=== PATIENT | male | born 1980 | race American Indian/Alaskan Native ===

== ENCOUNTER 2017-04-26 19:28 | Emergency (ER) | payer MEDICAID, OTHER ==
--- NOTE | 2017-04-26 20:54 | EDM.PDOC ---
ED HPI GENERAL MEDICAL PROBLEM - General Chief Complaint: Gastrointestinal Problem Stated Complaint: [id number] FEELING SICK,LIGHTHEADED,DIAHREAH Time Seen by Provider: 04/26/17 20:49 Source of Information: Reports: Patient History Limitations: Reports: No Limitations - History of Present Illness INITIAL COMMENTS - FREE TEXT/NARRATIVE: sudden fever satrting tuesday, now sore throat cough, generalized body aches. Treatments CONSULTANT TECHNOLOGY: Reports: Other Medication(s) Generalized Pain Score (Numeric/FACES): 5 - Related Data Allergies Allergy/AdvReac Type Severity Reaction Status Date / Time No Known Allergies Allergy Verified 04/26/17 19:46 Home Meds: Home Meds . [No Known Home Meds] 04/26/17 [History] Past Medical History - Past Health History Medical/Surgical History: Denies Medical/Surgical History Social & Family History - Family History Family Medical History: Noncontributory - Tobacco Use Smoking Status *Q: Current Every Day Smoker Years of Tobacco use: 20 Packs/Tins Daily: 0.5 Second Hand Smoke Exposure: Yes - Caffeine Use Caffeine Use: Reports: Coffee, Soda - Alcohol Use Days Per Week of Alcohol Use: 7 Number of Drinks Per Day: 6 Total Drinks Per Week: 42 - Recreational Drug Use Recreational Drug Use: No ED ROS GENERAL - Review of Systems Review Of Systems: See Below Constitutional: Reports: Fever, Fatigue HEENT: Reports: Rhinitis, Throat Pain Respiratory: Reports: Cough Cardiovascular: Reports: No Symptoms GI/Abdominal: Reports: No Symptoms : Reports: No Symptoms Musculoskeletal: Reports: Other (generalized body aches, greater lower legs) Skin: Reports: No Symptoms Neurological: Reports: No Symptoms ED EXAM, GENERAL - Physical Exam Exam: See Below Exam Limited By: No Limitations General Appearance: Alert, Mild Distress Eye Exam: Bilateral Eye: EOMI Ears: Normal External Exam Ear Exam: Right Ear: TM Red (mild), Bilateral Ear: TM Dull Nose: Normal Inspection Throat/Mouth: Inflammation Head: Atraumatic Neck: Normal Inspection Respiratory/Chest: Decreased Breath Sounds Cardiovascular: Normal Peripheral Pulses GI/Abdominal: Normal Bowel Sounds Extremities: Normal Inspection, Normal Range of Motion Neurological: Alert, Oriented Psychiatric: Normal Affect Skin Exam: Warm, Dry, Intact Course - Vital Signs Last Recorded V/S: Last Vital Signs Temp 102.5 F H 04/26/17 21:16 Pulse 107 H 04/26/17 19:55 Resp 20 04/26/17 19:55 BP 140/93 H 04/26/17 19:55 Pulse Ox 95 04/26/17 19:55 - Orders/Labs/Meds Orders: Active Orders 24 hr Category Date Time Status CULTURE STREP A CONFIRMATION [RM] Stat Lab 04/26/17 20:55 Results STREP SCRN A RAPID W CULT CONF [RM] Stat Lab 04/26/17 20:55 Results Labs: Laboratory Tests 04/26/17 04/26/17 04/26/17 Range/Units 21:00 21:00 21:00 WBC 16.3 H (5.0-10.0) 10^3/uL RBC 5.27 (4.6-6.2) 10^6/uL Hgb 16.1 (14.0-18.0) g/dL Hct 46.9 (40.0-54.0) % MCV 89.0 (80-100) fL MCH 30.6 (27.0-34.0) pg MCHC 34.3 (33.0-35.0) g/dL Plt Count 227 (150-450) 10^3/uL Neut % (Auto) 81.9 H (42.2-75.2) % Lymph % (Auto) 10.4 L (20.5-50.1) % [place] % (Auto) 6.6 (2-8) % Eos % (Auto) 0.9 L (1.0-3.0) % Baso % (Auto) 0.2 (0.0-1.0) % Sodium 136 (135-145) mmol/L Potassium 3.7 (3.6-5.0) mmol/L Chloride 103 (101-111) mmol/L Carbon Dioxide 23.0 (21.0-31.0) mmol/L Anion Gap 13.7 BUN 7 (7-18) mg/dL Creatinine 0.8 (0.6-1.3) mg/dL Est Cr Clr Drug Dosing 144.14 mL/min Estimated GFR (MDRD) > 60 BUN/Creatinine Ratio 8.75 Glucose 98 (74-105) mg/dL Calcium 8.9 (8.4-10.2) mg/dl Total Bilirubin 0.9 (0.2-1.0) mg/dL AST 23 (10-42) IU/L ALT 17 (10-60) IU/L Alkaline Phosphatase 68 (42-121) IU/L Total Protein 7.7 (6.7-8.2) g/dl Albumin 4.2 (3.2-5.5) g/dl Globulin 3.5 Albumin/Globulin Ratio 1.20 Urine Color Yellow (YELLOW) Urine Appearance Clear (CLEAR) Urine pH 7.0 (5.0-9.0) Ur Specific [place] 1.015 (1.005-1.030) Urine Protein Negative (NEGATIVE) Urine Glucose (UA) Negative (NEGATIVE) Urine Ketones Negative (NEGATIVE) Urine Occult Blood Negative (NEGATIVE) Urine Nitrite Negative (NEGATIVE) Urine Bilirubin Negative (NEGATIVE) Urine Urobilinogen 1.0 (0.2-1.0) mg/dL Ur Leukocyte Esterase Negative (NEGATIVE) Urine RBC 0-5 /HPF Urine WBC Not seen (0-5/HPF) /HPF Ur Epithelial Cells Rare /HPF Urine Bacteria Rare (0-FEW/HPF) /HPF Meds: Medications Discontinued Medications Generic Name Dose Route Start Last Admin Trade Name Freq PRN Reason Stop Dose Admin Amoxicillin 500 mg 04/26/17 23:01 04/26/17 23:08 Amoxil PO 04/26/17 23:02 500 mg ONETIME ONE Administration Sodium Chloride 1,000 mls @ 999 mls/hr 04/26/17 21:04 04/26/17 21:08 Normal Saline IV 04/26/17 22:04 999 mls/hr .BOLUS ONE Administration Ibuprofen 600 mg 04/26/17 21:12 04/26/17 21:16 Motrin PO 04/26/17 21:13 600 mg ONETIME ONE Administration - Radiology Interpretation Free Text/Narrative:: CXR No acute disease Departure - Departure Time of Disposition: 22:59 Disposition: Home, Self-Care 01 Condition: Good Clinical Impression: Bronchitis URI (upper respiratory infection) Qualifiers: URI type: unspecified URI Qualified Code(s): J06.9 - Acute upper respiratory infection, unspecified - Discharge Information Instructions: Dehydration, Adult, [id number] Forms: ED Department Discharge Additional Instructions: increase fluids rest alternate tylenol and ibuprofen amoxicillin 875 one twice daily for one week tylenol or ibuprofen for fever discomfot - My Orders Last 24 Hours: My Active Orders 04/26/17 20:55 CULTURE STREP A CONFIRMATION [RM] Stat STREP SCRN A RAPID W CULT CONF [RM] Stat - Assessment/Plan Last 24 Hours: My Active Orders 04/26/17 20:55 CULTURE STREP A CONFIRMATION [RM] Stat STREP SCRN A RAPID W CULT CONF [RM] Stat
[2017-04-26] MEDS ORDERED: Sodium Chloride 0.9% 1,000 ML IV ONE (21:04)
[2017-04-26] MEDS ORDERED: Ibuprofen 600 MG Tab PO ONE (21:12)
[2017-04-26 21:27] LABS: ANION GAP 13.7; CHLORIDE,CL 103 mmol/L (101-111); SODIUM,NA 136 mmol/L (135-145)
[2017-04-26] MEDS ORDERED: Amoxicillin 500 MG Cap PO ONE (23:01)
== END 2017-04-26 23:12 | disposition home or self-care (01) ==
LOC: DL.ED 19:28
DX: J40 Bronchitis, not specified as acute or chronic (principal); J06.9 Acute upper respiratory infection, unspecified; F17.210 Nicotine dependence, cigarettes, uncomplicated
CPT/HCPCS: 36415; 71045; 80053; 81001; 85025; 87081; 87430; 96360; 99284; A9270; J7030

== ENCOUNTER 2017-10-24 15:41 | Emergency (ER) | payer MEDICAID, OTHER ==
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
[2017-10-24 17:08] LABS: ANION GAP 13.7; CHLORIDE,CL 102 mmol/L (101-111); SODIUM,NA 137 mmol/L (135-145)
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
== END 2017-10-24 18:23 | disposition home or self-care (01) ==
LOC: DL.ED 15:41
DX: S22.41XA Multiple fractures of ribs, right side, initial encounter for closed fracture (principal); V49.40XA Driver injured in collision with unspecified motor vehicles in traffic accident, initial encounter
CPT/HCPCS: 36415; 70450; 70486; 71101; 72040; 73610; 80053; 80305; 81001; 85025; 94010; 99284; G0480

== ENCOUNTER 2020-02-17 09:16 | Emergency (ER) | payer SELFPAY ==
[2020-02-17] MEDS ORDERED: fentaNYL 100 MCG/2 ML SDV IVPUSH ONE (10:01)
[2020-02-17] MEDS ORDERED: Lactated Ringers 1,000 ML IV ONE (10:01)
--- NOTE | 2020-02-17 10:10 | EDM.PDOC ---
ED HPI GENERAL MEDICAL PROBLEM - General Chief Complaint: Abdominal Pain Stated Complaint: sevre stomache pain fever light headed dizzy Time Seen by Provider: 02/17/20 09:35 Source of Information: Reports: Patient, RN, RN Notes Reviewed History Limitations: Reports: No Limitations - History of Present Illness INITIAL COMMENTS - FREE TEXT/NARRATIVE: Patient is a 39-year-old male who presents to ER with complaint of abdominal pain. Patient states he feels as though he is constipated, states last normal bowel movement was . States he has had very small watery stools for the past day or so with increasing pain. The pain began in the right upper and left upper quadrants, and has moved to the left lower quadrant. Patient is tender to the right lower quadrant as well upon palpation. Patient admits to fever and chills, nausea and vomiting, and the watery stools. Denies chest pains, states he does have some shortness of breath, due to the pain. Patient denies any past history of abdominal surgeries, denies history of hernias. Patient states the pain does radiate into the testicles. Patient states he has not had any known exposure to Covid. States he wears a mask at all times at work. States he was tested between 4 and 6 weeks ago and was negative. Denies any cough or body aches. Onset: Today, Sudden Duration: Constant, Getting Worse Location: Reports: Abdomen Quality: Reports: Sharp, Stabbing Severity: Moderate Improves with: Reports: None Worsens with: Reports: None Associated Symptoms: Reports: Fever/Chills, Loss of Appetite, Nausea/Vomiting Left Lower Abdominal Pain Score (Numeric/FACES): 7 - Related Data Allergies Allergy/AdvReac Type Severity Reaction Status Date / Time No Known Allergies Allergy Verified 02/17/20 10:07 Home Meds: Home Meds . [No Known Home Meds] 04/26/17 [History] Past Medical History - Past Health History Medical/Surgical History: Denies Medical/Surgical History - Past Surgical History Musculoskeletal Surgical History: Reports: Shoulder Surgery Social & Family History - Family History Family Medical History: No Pertinent Family History - Tobacco Use Tobacco Use Status *Q: Current Every Day Tobacco User Years of Tobacco use: 23 Packs/Tins Daily: 1 - Caffeine Use Caffeine Use: Reports: None - Recreational Drug Use Recreational Drug Use: Yes ED ROS GENERAL - Review of Systems Review Of Systems: Comprehensive ROS is negative, except as noted in HPI. ED EXAM, GI/ABD - Physical Exam Exam: See Below Exam Limited By: No Limitations General Appearance: Alert, WD/WN, Mild Distress Eyes: Bilateral: Normal Appearance, EOMI Ears: Normal External Exam, Hearing Grossly Normal Nose: Normal Inspection Throat/Mouth: Normal Inspection, Normal Voice, No Airway Compromise Head: Atraumatic, Normocephalic Neck: Normal Inspection, Supple, Non-Tender, Full Range of Motion Respiratory/Chest: No Respiratory Distress, Lungs Clear, Normal Breath Sounds, No Accessory Muscle Use, Chest Non-Tender Cardiovascular: Normal Peripheral Pulses, Regular Rate, Rhythm, No Edema, No Gallop, No JVD, No Murmur, No Rub GI/Abdominal Exam: No Organomegaly, No Distention, No Abnormal Bruit, No Mass, Pelvis Stable, Tender (generalized/diffuse), Abnormal Bowel Sounds (hypoactive), Other (Pain radiates to the testicles) (Male) Exam: Deferred Rectal (Males) Exam: Deferred Back Exam: Normal Inspection, Full Range of Motion, NT Extremities: Normal Inspection, Normal Range of Motion, Non-Tender, Normal Capillary Refill, No Pedal Edema Neurological: Alert, Oriented, CN II-XII Intact, Normal Cognition, Normal Gait, Normal Reflexes, No Motor/Sensory Deficits Psychiatric: Normal Affect, Normal Mood Skin Exam: Warm, Dry, Intact, Normal Color, No Rash Lymphatic: No Adenopathy Course - Vital Signs Last Recorded V/S: Last Vital Signs Temp 99.9 F 02/17/20 09:27 Pulse 111 H 02/17/20 09:27 Resp 18 02/17/20 09:27 BP 135/85 02/17/20 09:27 Pulse Ox 98 02/17/20 09:27 - Orders/Labs/Meds Orders: Active Orders 24 hr Category Date Time Status CORONAVIRUS COVID-19 SILVA [MOLEC] Stat Lab 02/17/20 11:19 Ordered CULTURE BLOOD [BC] Stat Lab 02/17/20 09:41 Received CULTURE BLOOD [BC] Stat Lab 02/17/20 09:59 Received Ampicillin 2 gm Med 02/17/20 11:21 Active Sodium Chloride 0.9% [Normal Saline] 100 ml IV ONETIME Sodium Chloride 0.9% [Normal Saline] 1,000 ml Med 02/17/20 11:09 Active IV CONTINUOUS Blood Culture x2 Reflex Set [OM.PC] Stat Oth 02/17/20 09:43 Ordered Medication Orders Sodium Chloride (Normal Saline) 1,000 mls @ 150 mls/hr IV CONTINUOUS ONE Stop: 02/17/20 17:48 Ampicillin Sodium 2 gm/ Sodium (Chloride) 100 mls @ 200 mls/hr IV ONETIME ONE Stop: 02/17/20 11:50 Labs: Laboratory Tests 02/17/20 02/17/20 02/17/20 Range/Units 09:41 09:41 09:41 WBC 24.0 H (5.0-10.0) 10^3/uL RBC 5.15 (4.6-6.2) 10^6/uL Hgb 16.4 D (14.0-18.0) g/dL Hct 46.6 (40.0-54.0) % MCV 90.5 (80-100) fL MCH 31.8 (27.0-34.0) pg MCHC 35.2 H (33.0-35.0) g/dL Plt Count 286 (150-450) 10^3/uL Neut % (Auto) 87.8 H (42.2-75.2) % Lymph % (Auto) 6.5 L (20.5-50.1) % [place] % (Auto) 5.5 (2-8) % Eos % (Auto) 0.0 L (1.0-3.0) % Baso % (Auto) 0.2 (0.0-1.0) % Sodium 134 L (136-145) mmol/L Potassium 3.8 (3.5-5.1) mmol/L Chloride 99 (98-107) mmol/L Carbon Dioxide 26 (21-32) mmol/L Anion Gap 12.8 (7-13) mEq/L BUN 10 (7-18) mg/dL Creatinine 1.05 (0.70-1.30) mg/dL Est Cr Clr Drug Dosing 107.64 mL/min Estimated GFR (MDRD) > 60 BUN/Creatinine Ratio 9.5 (No establ ref range) Glucose 116 H (74-99) mg/dL Lactic Acid 1.0 (0.4-2.0) mmol/L Calcium 9.3 (8.5-10.1) mg/dL Total Bilirubin 1.1 H (0.2-1.0) mg/dL AST 13 L (15-37) U/L ALT 26 (16-63) U/L Alkaline Phosphatase 80 (46-116) U/L C-Reactive Protein 7.7 H (0.0-0.9) mg/dL Total Protein 7.9 (6.4-8.2) g/dL Albumin 4.1 (3.4-5.0) g/dL Globulin 3.8 Albumin/Globulin Ratio 1.1 Urine Color (YELLOW) Urine Appearance (CLEAR) Urine pH (5.0-9.0) Ur Specific [place] (1.005-1.030) Urine Protein (NEGATIVE) Urine Glucose (UA) (NEGATIVE) Urine Ketones (NEGATIVE) Urine Occult Blood (NEGATIVE) Urine Nitrite (NEGATIVE) Urine Bilirubin (NEGATIVE) Urine Urobilinogen (0.2-1.0) mg/dL Ur Leukocyte Esterase (NEGATIVE) 02/17/20 Range/Units 09:48 WBC (5.0-10.0) 10^3/uL RBC (4.6-6.2) 10^6/uL Hgb (14.0-18.0) g/dL Hct (40.0-54.0) % MCV (80-100) fL MCH (27.0-34.0) pg MCHC (33.0-35.0) g/dL Plt Count (150-450) 10^3/uL Neut % (Auto) (42.2-75.2) % Lymph % (Auto) (20.5-50.1) % [place] % (Auto) (2-8) % Eos % (Auto) (1.0-3.0) % Baso % (Auto) (0.0-1.0) % Sodium (136-145) mmol/L Potassium (3.5-5.1) mmol/L Chloride (98-107) mmol/L Carbon Dioxide (21-32) mmol/L Anion Gap (7-13) mEq/L BUN (7-18) mg/dL Creatinine (0.70-1.30) mg/dL Est Cr Clr Drug Dosing mL/min Estimated GFR (MDRD) BUN/Creatinine Ratio (No establ ref range) Glucose (74-99) mg/dL Lactic Acid (0.4-2.0) mmol/L Calcium (8.5-10.1) mg/dL Total Bilirubin (0.2-1.0) mg/dL AST (15-37) U/L ALT (16-63) U/L Alkaline Phosphatase (46-116) U/L C-Reactive Protein (0.0-0.9) mg/dL Total Protein (6.4-8.2) g/dL Albumin (3.4-5.0) g/dL Globulin Albumin/Globulin Ratio Urine Color Yellow (YELLOW) Urine Appearance Clear (CLEAR) Urine pH 7.0 (5.0-9.0) Ur Specific [place] 1.020 (1.005-1.030) Urine Protein Negative (NEGATIVE) Urine Glucose (UA) Negative (NEGATIVE) Urine Ketones Negative (NEGATIVE) Urine Occult Blood Negative (NEGATIVE) Urine Nitrite Negative (NEGATIVE) Urine Bilirubin Negative (NEGATIVE) Urine Urobilinogen 0.2 (0.2-1.0) mg/dL Ur Leukocyte Esterase Negative (NEGATIVE) Meds: Medications Generic Name Dose Route Start Last Admin Trade Name Freq PRN Reason Stop Dose Admin Sodium Chloride 1,000 mls @ 150 mls/hr 02/17/20 11:09 Normal Saline IV 02/17/20 17:48 CONTINUOUS ONE Ampicillin Sodium 2 gm/ Sodium 100 mls @ 200 mls/hr 02/17/20 11:21 Chloride IV 02/17/20 11:50 ONETIME ONE Discontinued Medications Generic Name Dose Route Start Last Admin Trade Name Freq PRN Reason Stop Dose Admin Ampicillin Sodium 2 gm 02/17/20 11:03 Ampicillin IVPUSH 02/17/20 11:04 ONETIME ONE Fentanyl 50 mcg 02/17/20 10:01 02/17/20 10:07 Sublimaze IVPUSH 02/17/20 10:02 50 mcg ONETIME ONE Administration Lactated Ringer's 1,000 mls @ 999 mls/hr 02/17/20 10:01 02/17/20 11:19 Ringers, Lactated IV 02/17/20 11:01 Infused .BOLUS ONE Infusion Iopamidol 100 ml 02/17/20 10:19 02/17/20 10:50 Isovue-300 (61%) IVPUSH 02/17/20 10:20 100 ml ONETIME ONE Administration - Radiology Interpretation Free Text/Narrative:: CT Abdomen/Pelvis with contrast: Addendum created by Libia Ayala MD on 02/17/2020 11:16 AM Central Time ([place] & [place]): THIS REPORT CONTAINS FINDINGS THAT MAY BE CRITICAL TO PATIENT CARE. The findings were verbally communicated via telephone conference with Marlyn Silvestre at 11:15 AM [employer] on 02/17/2020. The findings were acknowledged and understood. Initial Report created on 02/17/2020 11:15 AM Central Time ([place] & [place]): PROCEDURE INFORMATION: Exam: CT Abdomen And Pelvis With Contrast Exam date and time: 02/17/2020 10:29 AM Age: 39 years old Clinical indication: Other: ? Bowel obstruction TECHNIQUE: Imaging protocol: Computed tomography of the abdomen and pelvis with intravenous contrast. Radiation optimization: All CT scans at this facility use at least one of these dose optimization techniques: automated exposure control; mA and/or kV adjustment per patient size (includes targeted exams where dose is matched to clinical indication); or iterative reconstruction. Contrast material: ISOVUE 300; Contrast volume: 100 ml; Contrast route: INTRAVENOUS (IV); COMPARISON: No relevant prior studies available. FINDINGS: Lungs: There is mild dependent bibasilar atelectasis. Liver: Normal. No mass. Gallbladder and bile ducts: Normal. No calcified stones. No ductal dilation. Pancreas: Normal. No ductal dilation. Spleen: Normal. No splenomegaly. Adrenal glands: Normal. No mass. Kidneys and ureters: Normal. No hydronephrosis. Stomach and bowel: Dense radiopaque debris is identified in the ascending colon Appendix: There is a 13 mm elongated right lower quadrant appendix that contains a 9.5 mm density or appendicolith with periappendiceal inflammation. Small micro- perforation demonstrated as small focus of air within the distal appendix. Mild dilatation of small bowel with mucosal thickening predominating in the right lower quadrant adjacent to appendicitis. No free intra-abdominal air. Intraperitoneal space: Small amount of free fluid is seen in the pelvis. Vasculature: Unremarkable. No abdominal aortic aneurysm. Lymph nodes: Unremarkable. No enlarged lymph nodes. Urinary bladder: Unremarkable as visualized. Reproductive: Unremarkable as visualized. Bones/joints: There are chronic right rib fractures. No acute fractures. Soft tissues: Unremarkable. IMPRESSION: 1. Acute appendicitis with microperforation. Distal dilated appendix contains debris or appendicolith. 2. Small bowel ileus or early small bowel obstruction secondary to inflammatory changes within the right lower quadrant. Thank you for allowing us to participate in the care of your patient. Dictated and Authenticated by: Libia Walters MD 02/17/2020 11:15 AM Central Time ([place] & [place]) See rad report - Re-Assessments/Exams Free Text/Narrative Re-Assessment/Exam: 02/17/20 11:25 Patient case relayed to Dr. Queen per [facility]. Dr. Queen agreed to accept the patient for transfer to [facility] ED. Departure - Departure Time of Disposition: 11:25 Disposition: DC/Tfer to [facility] 02 Condition: Fair Clinical Impression: Small bowel obstruction Appendicitis Qualifiers: Appendicitis type: acute appendicitis Acute appendicitis type: with localized peritonitis Appendicitis gangrene presence: without gangrene Appendicitis perforation presence: with perforation Appendicitis abscess presence: without abscess Qualified Code(s): K35.32 - Acute appendicitis with perforation and localized peritonitis, without abscess - Discharge Information *PRESCRIPTION DRUG MONITORING PROGRAM REVIEWED*: No *COPY OF PRESCRIPTION DRUG MONITORING REPORT IN PATIENT DAO: No Forms: ED Department Discharge, Interfacility Transfer [facility] Sepsis Event Note (ED) - Evaluation Sepsis Screening Result: No Definite Risk - Focused Exam Vital Signs: Vital Signs Temp Pulse Resp BP Pulse Ox 02/17/20 09:27 99.9 F 111 H 18 135/85 98 - My Orders Last 24 Hours: My Active Orders 02/17/20 09:41 CULTURE BLOOD [BC] Stat 02/17/20 09:43 Blood Culture x2 Reflex Set [OM.PC] Stat 02/17/20 09:59 CULTURE BLOOD [BC] Stat 02/17/20 11:09 Sodium Chloride 0.9% [Normal Saline] 1,000 ml IV CONTINUOUS 02/17/20 11:19 CORONAVIRUS COVID-19 SILVA [MOLEC] Stat 02/17/20 11:21 Ampicillin 2 gm Sodium Chloride 0.9% [Normal Saline] 100 ml IV ONETIME - Assessment/Plan Last 24 Hours: My Active Orders 02/17/20 09:41 CULTURE BLOOD [BC] Stat 02/17/20 09:43 Blood Culture x2 Reflex Set [OM.PC] Stat 02/17/20 09:59 CULTURE BLOOD [BC] Stat 02/17/20 11:09 Sodium Chloride 0.9% [Normal Saline] 1,000 ml IV CONTINUOUS 02/17/20 11:19 CORONAVIRUS COVID-19 SILVA [MOLEC] Stat 02/17/20 11:21 Ampicillin 2 gm Sodium Chloride 0.9% [Normal Saline] 100 ml IV ONETIME
[2020-02-17 10:12] LABS: ANION GAP 12.8 mEq/L (7-13); CHLORIDE,CL 99 mmol/L (98-107); SODIUM,NA 134 mmol/L (136-145)
[2020-02-17] MEDS ORDERED: Iopamidol 612 MG/ML 100 ML Bottle IVPUSH ONE (10:19)
[2020-02-17] MEDS ORDERED: Ampicillin 2 GM Vial IVPUSH ONE (11:03)
[2020-02-17] MEDS ORDERED: Sodium Chloride 0.9% 1,000 ML IV ONE (11:09)
--- NOTE | 2020-02-17 11:15 | CT ---
PROCEDURE INFORMATION: Exam: CT Abdomen And Pelvis With Contrast Exam date and time: 02/17/2020 10:29 AM Age: 39 years old Clinical indication: Other: ? Bowel obstruction TECHNIQUE: Imaging protocol: Computed tomography of the abdomen and pelvis with intravenous contrast. Radiation optimization: All CT scans at this facility use at least one of these dose optimization techniques: automated exposure control; mA and/or kV adjustment per patient size (includes targeted exams where dose is matched to clinical indication); or iterative reconstruction. Contrast material: ISOVUE 300; Contrast volume: 100 ml; Contrast route: INTRAVENOUS (IV); COMPARISON: No relevant prior studies available. FINDINGS: Lungs: There is mild dependent bibasilar atelectasis. Liver: Normal. No mass. Gallbladder and bile ducts: Normal. No calcified stones. No ductal dilation. Pancreas: Normal. No ductal dilation. Spleen: Normal. No splenomegaly. Adrenal glands: Normal. No mass. Kidneys and ureters: Normal. No hydronephrosis. Stomach and bowel: Dense radiopaque debris is identified in the ascending colon Appendix: There is a 13 mm elongated right lower quadrant appendix that contains a 9.5 mm density or appendicolith with periappendiceal inflammation. Small micro- perforation demonstrated as small focus of air within the distal appendix. Mild dilatation of small bowel with mucosal thickening predominating in the right lower quadrant adjacent to appendicitis. No free intra-abdominal air. Intraperitoneal space: Small amount of free fluid is seen in the pelvis. Vasculature: Unremarkable. No abdominal aortic aneurysm. Lymph nodes: Unremarkable. No enlarged lymph nodes. Urinary bladder: Unremarkable as visualized. Reproductive: Unremarkable as visualized. Bones/joints: There are chronic right rib fractures. No acute fractures. Soft tissues: Unremarkable. IMPRESSION: 1. Acute appendicitis with microperforation. Distal dilated appendix contains debris or appendicolith. 2. Small bowel ileus or early small bowel obstruction secondary to inflammatory changes within the right lower quadrant.
[2020-02-17] MEDS ORDERED: Ampicillin 2 GM in Sodium Chloride 0.9% 100 ML IV ONE (11:21)
== END 2020-02-17 12:09 ==
LOC: DL.ED 09:16
DX: K35.32 Acute appendicitis with perforation, localized peritonitis, and gangrene, without abscess (principal); K56.609 Unspecified intestinal obstruction, unspecified as to partial versus complete obstruction; F17.210 Nicotine dependence, cigarettes, uncomplicated
CPT/HCPCS: 36415; 74177; 80053; 81003; 83605; 85025; 86140; 87040; 87635; 96365; 96375; 99285; J0290; J3010; J7030; J7120; Q9967; 99284; U0002

== ENCOUNTER 2022-01-06 22:07 | Emergency (ER) | payer SELFPAY ==
[2022-01-06] MEDS ORDERED: Ondansetron 4 MG/2 ML SDV ONE (22:09)
[2022-01-06] MEDS ORDERED: Heparin Sodium 5,000 Units/ML Vial IVPUSH ONE (22:16)
[2022-01-06] MEDS: Heparin Sodium 5,000 Units/ML Vial ONE ×2 (22:18→22:20)
[2022-01-06] MEDS ORDERED: Ondansetron 4 MG/2 ML SDV IVPUSH ONE (22:20)
[2022-01-06] MEDS ORDERED: Morphine 2 MG/ML SYRINGE IVPUSH ONE (22:25)
[2022-01-06] MEDS ORDERED: Clopidogrel 75 MG Tab PO ONE (22:29)
[2022-01-06] MEDS ORDERED: Heparin Sodium/0.45% NaCl 25,000 UNITS/500 ML BAG IV SCH (22:30)
[2022-01-06] MEDS: Nitroglycerin 0.4 MG Tab.SL SL ONE ×2 (22:33→22:46)
[2022-01-06] MEDS ORDERED: Heparin Sodium/0.45% NaCl 500 ML ONE (22:41)
[2022-01-06 22:49] LABS: ANION GAP 16.4 mEq/L (7-13); CHLORIDE,CL 100 mmol/L (98-107); SODIUM,NA 137 mmol/L (136-145)
[2022-01-06 23:02] LABS: ESTIMATED GFR 109 mL/min (>=60)
[2022-01-06 23:22] LABS: CORONAVIRUS COVID-19 NAA NEGATIVE (NEGATIVE)
== END 2022-01-06 23:00 | disposition home or self-care (01) ==
LOC: DL.ED 22:07
DX: I21.4 Non-ST elevation (NSTEMI) myocardial infarction (principal); Z20.822 Contact with and (suspected) exposure to COVID-19
CPT/HCPCS: 0240U; 36415; 71045; 80053; 80307; 82150; 83605; 83690; 83735; 83880; 84484; 85025; 85610; 85730; 86140; 93005; 96374; 96375; 96376; 99285; A9270; J1644; J2270; J2405

== ENCOUNTER 2022-04-27 02:05 | Emergency (ER) | payer OTHER ==
[2022-04-27] MEDS ORDERED: Aspirin 81 MG Tab.Chew PO ONE (02:31)
[2022-04-27 02:47] LABS: ANION GAP 13.6 mEq/L (7-13); CHLORIDE,CL 102 mmol/L (98-107); SODIUM,NA 138 mmol/L (136-145)
[2022-04-27 03:04] LABS: ESTIMATED GFR 85 mL/min (>=60)
[2022-04-27 03:25] LABS: AMPHETAMINES,URINE NEGATIVE (NEGATIVE); BARBITURATES,URINE NEGATIVE (NEGATIVE); BENZODIAZEPINE,URINE NEGATIVE (NEGATIVE); MDMA (ECSTASY), URINE NEGATIVE (NEGATIVE); METHADONE,URINE NEGATIVE (NEGATIVE); METHAMPHETAMINES,URINE NEGATIVE (NEGATIVE); OPIATES,URINE NEGATIVE (NEGATIVE); OXYCODONE,URINE NEGATIVE (NEGATIVE); PHENCYCLIDINE,URINE NEGATIVE (NEGATIVE); TCA,URINE NEGATIVE (NEGATIVE)
[2022-04-27] MEDS ORDERED: Cephalexin 500 MG Cap PO ONE (04:03)
== END 2022-04-27 04:12 | disposition home or self-care (01) ==
LOC: DL.ED 02:05
DX: R07.89 Other chest pain (principal); J06.9 Acute upper respiratory infection, unspecified; N39.0 Urinary tract infection, site not specified; R31.9 Hematuria, unspecified
CPT/HCPCS: 36415; 71045; 80053; 80305-QW; 81001; 83605; 84484; 85025; 93005; 93010; 99284; 99285; A9270-GY